=== PATIENT | male | born 1970 | race Caucasian/White ===

== ENCOUNTER 2017-04-26 19:20 | Emergency (ER) | payer BC ==
[2017-04-26 19:37] VITALS: BP 138/83; TEMP 97.7; O2SAT 95
--- NOTE | 2017-04-26 20:01 | ED.PDOC ---
History of Present Illness - General Chief Complaint: Laceration Stated Complaint: laceration to forehead Time Seen by Provider: 04/26/17 19:23 Source: patient Exam Limitations: no limitations - History of Present Illness Initial Comments: the patient has a three-quarter inch laceration to the right forehead from getting hit in the head by an elbow playing basketball immediately prior to arrival. No loss of consciousness. No neck pain. Hemostatic by time of arrival. No other injuries. Timing/Duration: momentarily Severity: mild Improving Factors: nothing Worsening Factors: nothing Associated Symptoms: denies symptoms Allergies/Adverse Reactions: Allergies NO KNOWN ALLERGY Allergy (Verified 04/26/17 19:37) Home Medications: Ambulatory Orders Cimetidine [Tagamet Hb] 200 mg PO DAILY 04/26/17 Review of Systems - Review of Systems Constitutional: States: no symptoms reported EENTM: States: no symptoms reported Respiratory: States: no symptoms reported Cardiology: States: no symptoms reported Gastrointestinal/Abdominal: States: no symptoms reported Genitourinary: States: no symptoms reported Musculoskeletal: States: no symptoms reported Skin: States: see HPI Neurological: States: no symptoms reported Endocrine: States: no symptoms reported All other Systems: No Change from Baseline Past Medical History (General) - Patient Medical History Hx Seizures: No Hx Stroke: No Hx Dementia: No Hx Asthma: No Hx of COPD: No Hx Cardiac Disorders: No Hx Congestive Heart Failure: No Hx Pacemaker: No Hx Hypertension: No Hx Thyroid Disease: No Hx Diabetes: No Hx Gastroesophageal Reflux: Yes Hx Renal Disease: No Hx Cancer: No Hx of HIV: No Hx Hepatitis C: No Hx MRSA: No Surgical History: no surgical history - Vaccination History Hx Tetanus, Diphtheria Vaccination: No Hx Influenza Vaccination: No Hx Pneumococcal Vaccination: No Immunizations Up to Date: No - Social History Hx Tobacco Use: Yes Hx Chewing Tobacco Use: No Hx Alcohol Use: Yes Hx Substance Use: No Hx Substance Use Treatment: No Hx Depression: No Feels Threatened In Home Enviroment: No Feels Threatened In a Relationship: No Hx Physical Abuse: No Hx Emotional Abuse: No Hx Suspected Abuse: No Family Medical History - Family History Mother Family History: No Known Living Status: Still Living Physical Exam - Physical Exam General Appearance: Alert, Comfortable, No apparent distress Eye Exam: bilateral normal Ears, Nose, Throat: normal ENT inspection, normal pharynx Neck: non-tender, full range of motion, supple Respiratory: no respiratory distress, no accessory muscle use Cardiovascular/Chest: normal peripheral pulses, no edema Peripheral Pulses: radial,right: 2+, radial,left: 2+ Extremity: normal range of motion, no pedal edema, normal capillary refill Neurologic: manager community relations II-XII nml as tested, alert, normal mood/affect, oriented x 3 Skin Exam: normal color - laceration as per above. It does extend through the skin. It is Vertical. Comments: Vital Signs - 24 hr 04/26/17 04/26/17 19:28 19:33 Temperature 97.7 F Pulse Rate [ 87 monitor] Respiratory 18 18 Rate Blood Pressure 138/83 [left arm] O2 Sat by Pulse 95 Oximetry Progress - Progress Progress: 04/26/17 20:00 the patient is a 47-year-old male presenting to the emergency room secondary to a three-quarter inch laceration to the forehead. Risk and benefits of repair explained. Wound irrigated with 250 cc of sterile saline. 2 simple sutures of 4-0 Ethilon were used for reapproximation with Steri- Strips between. The patient tolerated the procedure well. Estimated blood loss 1 cc. Sutures need to be removed in 5 days. ER warnings were given. Departure - Departure Clinical Impression: Accidental laceration Disposition: Discharge to Home or Self Care Condition: Fair Departure Forms: ED Discharge - Pt. Copy, Patient Portal Self Enrollment Instructions: DI for Laceration Repair -- Simple Diet: regular diet Activity: increase activity as tolerated Home Medications: Ambulatory Orders Cimetidine [Tagamet Hb] 200 mg PO DAILY 04/26/17 Additional Instructions: the patient is a 47-year-old male presenting to the emergency room secondary to a three-quarter inch laceration to the forehead. Risk and benefits of repair explained. Wound irrigated with 250 cc of sterile saline. 2 simple sutures of 4-0 Ethilon were used for reapproximation with Steri- Strips between. The patient tolerated the procedure well. Estimated blood loss 1 cc. Sutures need to be removed in 5 days. ER warnings were given.
== END 2017-04-26 20:15 | disposition home or self-care (01) ==
LOC: ER 19:20
DX: S01.81XA Laceration without foreign body of other part of head, initial encounter (principal); K21.9 Gastro-esophageal reflux disease without esophagitis; Z87.891 Personal history of nicotine dependence; W50.0XXA Accidental hit or strike by another person, initial encounter; Y93.67 Activity, basketball